=== PATIENT | female | born 1960 | race Caucasian/White ===

== ENCOUNTER → 2016-05-12 08:57 | Outpatient (CLI) | payer MEDICARE ==
[2015-09-23 05:32] VITALS: BMI 24.8
[~2016-05-12 08:57] MED LIST: HYDROCODONE-APA1 TAB PO; PHAZYME180 MG PO; PROTONIX40 MG PO; REGLAN10 MG PO
== END | disposition home or self-care (01) ==
LOC: D.RAD 08:57
DX: K21.9 Gastro-esophageal reflux disease without esophagitis (principal)

== ENCOUNTER → 2017-01-26 08:06 | Outpatient (CLI) | payer MEDICARE ==
[2015-09-23 05:32] VITALS: BMI 24.8
== END | disposition home or self-care (01) ==
LOC: D.US 08:06
DX: R10.11 Right upper quadrant pain (principal)

== ENCOUNTER → 2017-05-10 13:06 | Outpatient (CLI) | payer MEDICARE ==
[2015-09-23 05:32] VITALS: BMI 24.8
== END | disposition home or self-care (01) ==
LOC: D.US 13:06
DX: R10.9 Unspecified abdominal pain (principal)

== ENCOUNTER → 2017-05-27 12:17 | Outpatient (CLI) | payer MEDICARE ==
[2015-09-23 05:32] VITALS: BMI 24.8
== END | disposition home or self-care (01) ==
LOC: D.NM 12:17
DX: R10.11 Right upper quadrant pain (principal); R11.2 Nausea with vomiting, unspecified

== ENCOUNTER 2017-06-09 05:43 | Day surgery (SDC) | payer MEDICARE ==
[2017-06-08 10:40] LABS: BASOPHILS 0.6 % (0-2); EOSINOPHILS 1.1 % (0-7); HEMOGLOBIN 14.2 g/dL (12-16); IMMATURE GRANULOCYTES 0.2 % (0-5); LYMPHOCYTES 40.7 % (15-50); MCH 33.4 pg (26.0-34.0); MCHC 35.5 g/dL (31.0-37.0); MCV 94.1 fL (80.0-100.0); MEAN PLATELET VOLUME 8.9 fL (7.4-10.4); MONOCYTES 8.9 % (2-11); NEUTROPHILS 48.5 % (40-80); PLATELET COUNT 216 10x3/uL (130-400); RBC 4.25 10x6/uL (4.00-5.40); RDW 12.5 % (11.5-14.5); WBC 5.3 10x3/uL (4.8-10.8)
[2017-06-08 11:19] LABS: CALC OSMOLALITY 280 mosm/kg (275-300); CALCIUM 8.6 mg/dL (8.5-10.1); CARBON DIOXIDE 28.4 mmol/L (21.0-32.0); CHLORIDE - SERUM 103 mmol/L (98-107); CREATININE - SERUM 0.8 mg/dL (0.6-1.3); GLUCOSE 80 mg/dL (74-106); POTASSIUM - SERUM 3.9 mmol/L (3.5-5.1); SODIUM 140 mmol/L (136-145); UREA NITROGEN 22 mg/dL (7-18); eGFR NON AFRICAN AMERICAN 78 mL/min (90-120)
[~2017-06-09] VITALS: Ht 177.8 cm; Wt 78.0 kg
--- NOTE | ~2017-06-09 | OP ---
PATIENT NAME: MORTEZA SHAH MEDICAL RECORD: [id number] :56 LOCATION:D.OPS ADMISSION DATE: SURGEON: RAIMUNDO DUNN MD DATE OF OPERATION: 06/09/2017 PREOPERATIVE DIAGNOSES: 1. Biliary dyskinesia. 2. Hypercholesterolemia. POSTOPERATIVE DIAGNOSES: 1. Biliary dyskinesia. 2. Hypercholesterolemia. PROCEDURE: Laparoscopic cholecystectomy. SURGEON: Raimundo Dunn MD REPORT OF PROCEDURE: The patient's abdomen was prepped and draped in sterile fashion. A cutdown was made on the superior aspect of the umbilicus, 0 Vicryls were placed in the fascia bilaterally, and the fascia was incised with 15-blade. I then bluntly entered the peritoneal cavity and placed a 12-mm Carroll port. Under direct visualization, a 5 mm trocar was placed in the epigastrium and 2 more 5-mm trocars were placed in the right subcostal region. The gallbladder was grasped and elevated. The cystic artery and cystic duct were dissected free and these were clipped proximally and distally and ligated in standard fashion. The gallbladder was then taken off the liver bed using electrocautery and placed into the right upper quadrant. Any bleeding from the liver bed was then treated with electrocautery. At this point, the right upper quadrant was irrigated out and then we are sure there was no sign of any bleeding or bile leakage. The ports and insufflation were then removed and the gallbladder was taken out through the umbilicus. The umbilical fascia was closed with interrupted 0 Vicryls times 3. The wounds were then irrigated out with normal saline, infused with 10 mL of 0.25% Marcaine with epinephrine. The skin incisions were all closed with subcutaneous 5-0 Monocryl and dressed appropriately. COMPLICATIONS: None. CONDITION: Stable. ANESTHESIA: General endotracheal and local. BLOOD LOSS: Minimal. TRANSINT:[id number] Voice Confirmation ID: [id number] DOCUMENT ID: [id number] RAIMUNDO DUNN MD CC: [id number] DICTATION DATE: 06/09/17 1044 [employer]GER: 06/09/17 1114 [facility] [address] [place] [address]
[~2017-06-09 05:43] MED LIST changes: +ASPIRIN EC81 M1 PO; +L-LYSINE500 M1 PO; +NIASPAN500 MG PO; +OMEPRAZOLE20 M1 PO
[2017-06-09 08:27] VITALS: BP 128/76; Ht 177.8 cm; Wt 78.0 kg
[2017-06-09] MEDS ORDERED: HYDROCODONE-APA1 TAB PO (10:02)
== END 2017-06-09 12:45 | disposition home or self-care (01) ==
LOC: D.OPS 05:43 → D.PAN 09:30 → D.OPS 10:00
PROVIDERS: Surgery
DX: K82.8 Other specified diseases of gallbladder (principal); E78.00 Pure hypercholesterolemia, unspecified; K21.9 Gastro-esophageal reflux disease without esophagitis; Z01.812 Encounter for preprocedural laboratory examination

== ENCOUNTER 2018-03-17 08:00 | Outpatient (CLI) | payer MEDICARE ==
[2017-06-09 08:27] VITALS: BMI 24.7
== END 2018-03-17 09:00 | disposition home or self-care (01) ==
LOC: D.MAMMO 08:00
DX: Z13.1 Encounter for screening for diabetes mellitus (principal)